=== PATIENT | male | born 1985 | race African-American/Black ===

== ENCOUNTER 2025-03-23 19:23 | Emergency (ER) | payer BC, OTHER ==
[~2025-03-23] VITALS: Ht 175.3 cm; Wt 85.4 kg
[2025-03-23 19:33] VITALS: O2SAT 99
[2025-03-23] MEDS ORDERED: BO1 TP (20:54)
[2025-03-23] MEDS ORDERED: CEPH500C2 MT (20:54)
[2025-03-23 21:24] VITALS: BP 152/98; PULSE 58; RESP 18; TEMP 36.9; O2SAT 98
[2025-03-23] MEDS: BACITRACIN ZINC OINT UDPKT TOP ONE (21:26)
== END 2025-03-23 21:26 | disposition home or self-care (01) ==
LOC: ER 19:23
DX: S61.301A Unspecified open wound of left index finger with damage to nail, initial encounter (principal); F41.9 Anxiety disorder, unspecified; W26.0XXA Contact with knife, initial encounter; Y93.G1 Activity, food preparation and clean up; Y92.89 Other specified places as the place of occurrence of the external cause; Y99.8 Other external cause status
CPT/HCPCS: 99283